=== PATIENT | female | born 1990 | race Caucasian/White ===

== ENCOUNTER 2018-02-22 03:18 | Inpatient (IN) | payer BC ==
[2018-02-22] MEDS ORDERED: ELECTROLYTE-148 SOLN 500 ML IV ONE ×3 (03:30→06:20)
[2018-02-22] MEDS: ELECTROLYTE-148 SOLN 1,000 ML IV SCH (06:00)
[2018-02-22 06:16] LABS: URINE APPEARANCE CLEAR; URINE BILIRUBIN NEGATIVE (<2.0 mg/dL); URINE COLOR STRAW; URINE GLUCOSE (UA) NEGATIVE (NEGATIVE); URINE KETONE NEGATIVE (NEGATIVE); URINE LEUK ESTERASE NEGATIVE (NEGATIVE); URINE NITRITE NEGATIVE (NEGATIVE); URINE PROTEIN NEGATIVE (NEGATIVE); URINE UROBILINOGEN NEGATIVE mg/dL (0.2-1.0)
[2018-02-22] MEDS ORDERED: CITRIC ACID/SODIUM CITRATE 30 ML UNIT-DOSE CUP PO ONE (06:20)
[2018-02-22 06:45] VITALS: BMI 40.5
--- NOTE | 2018-02-22 07:36 | HP ---
Past Medical History - Admission History of Present Illness: 28 yo @ 39 0/7 wks by first trimester ultrasound, EDC 03/01/2018 complicated by: 1. Prior CD in 2010 for failure to progress, desiring repeat CD 2. Obesity - BMI 30, normal early and 23 wk GCT 56 lb wt gain EFW at 35 + wks (02/01/2018) - 2688g (5 lb 15 oz) 40% Patient reports contractions which began overnight, increased in intensity and frequency at approximately 2300. She reports movement, denies leakage of fluid or vaginal bleeding. History Source: Patient Limitations to Obtaining History: No Limitations - Past Medical History Cardiovascular: No: HTN Pulmonary: No: Asthma Gastrointestinal: No: GERD ...: 2 ...Para: 1 ...Term: 1 ...: 0 ...Spon : 0 ...Induced : 0 ...Multiple Gestation: 0 ...LMP: 05/25/17 ... Weeks Gestation by Dates: 39.0 ...EDC by Dates: 03/01/18 ...EDC by Sono: 03/01/18 Psych: Yes: Anxiety - Past Surgical History Past Surgical History: Yes: Cholecystectomy, Hx Myomectomy: No Hx Transabdominal Cerclage: No - Smoking History Smoking history: Never smoked Have you smoked in the past 12 months: No Aproximately how many cigarettes per day: 4 If you are a former smoker, when did you quit?: 1 wk - Alcohol/Substance Use Hx Alcohol Use: No - Social History History of Recent Travel: No Home Medications - Allergies Allergies/Adverse Reactions: Allergies Allergy/AdvReac Type Severity Reaction Status Date / Time No Known Allergies Allergy Verified 10/12/15 13:55 - Home Medications Home Medications: Ambulatory Orders NK [No Known Home Medication] 10/05/15 Family Disease History - Family Disease History Family History: Denies Review of Systems - Review of Systems Constitutional: reports: No Symptoms Cardiovascular: reports: No Symptoms Respiratory: reports: No Symptoms Gastrointestinal: reports: No Symptoms Genitourinary: reports: No Symptoms Musculoskeletal: reports: No Symptoms Neurological: reports: No Symptoms Physical Exam - Maternity Vital Signs: Vital Signs Temperature 99.0 F 02/22/18 06:30 Pulse Rate 85 02/22/18 06:30 Respiratory Rate 20 02/22/18 06:30 Blood Pressure 116/64 02/22/18 06:30 O2 Sat by Pulse Oximetry (%) Constitutional: Yes: Well Nourished, No Distress, Calm Cardiovascular: Yes: Regular Rate and Rhythm Lungs: Clear to auscultation - Abdominal Exam/OB Number of Fetuses: Single Presentation: Vertex Category: I Accelerations: Non-Uniform Decelerations: None - Vaginal Exam/OB Presentation: Vertex/Position - Physical Exam Edema: LLE: 1+, RLE: 1+ ...Motor Strength: WNL Psychiatric: Yes: Alert, Oriented - Labs Lab Results: PNL: B positive, antibody negative, RPR NR; HIV neg; HCV neg; HBsAg neg; Hg Daisy AA; Parvo IgG pos; Toxo IgG/IgM imm; GBS negative; Sequential 1&2 WNL Hemorrhage Risk Assessment - Risk Factors Medium Risk Factors: Yes: Prior , uterine surgery,or multiple laparotomies High Risk Factors: Yes: None Risk Score: 1 Risk Level: Medium Risk Assessment/Plan 28 yo @ 39 0/7 wks, labor, prior CD for repeat 1. Admit to L&D 2. Consents reviewed and signed. Reviewed risks including but not limited to infection, bleeding, damage to surrounding organs such as bowel, bladder and ureters, injury to infant. She expressed understanding. 3. 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 Jass proceed to OR
[2018-02-22] MEDS ORDERED: morphine SULFATE/Preservative Free 0.5 MG/ML (1cc Syringe) ONE (07:46)
[2018-02-22] MEDS ORDERED: PHENYLEPHRINE HCL 10 MG/1 ML SINGLE DOSE VIAL ONE (07:48)
[2018-02-22] MEDS ORDERED: ceFAZolin SODIUM 1 GM VIAL ONE (07:51)
[2018-02-22] MEDS ORDERED: OXYTOCIN 20 UNITS in 0.9% NS 40 UNIT/2,000 ML INFUS.BAG IV ONE (08:35)
[2018-02-22] MEDS ORDERED: MIDAZOLAM HCL 2 MG/2 ML SINGLE DOSE VIAL ONE (08:45)
[2018-02-22] MEDS ORDERED: DEXAMETHASONE SOD PHOSPHATE 4 MG/1 ML VIAL ONE (08:46)
[2018-02-22] MEDS: OXYTOCIN 20 UNITS in 0.9% NS 20 UNIT/1,000 ML INFUS.BAG IV SCH ×2 (09:30→14:00)
[2018-02-22] MEDS ORDERED: WITCH HAZEL 50% (TUCKS) 40 PAD/JAR PAD TP PRN (09:30)
[2018-02-22] MEDS ORDERED: BENZOCAINE 20% 57 GM BOTTLE TP PRN (09:30)
[2018-02-22] MEDS ORDERED: BENZOCAINE 28 GM HEMORRHOIDAL OINTMENT TP PRN (09:30)
[2018-02-22] MEDS ORDERED: METHYLERGONOVINE MALEATE 0.2 MG/1 ML AMP IM PRN (09:30)
[2018-02-22] MEDS ORDERED: IBUPROFEN 800 MG/8 ML IJ IVPB PRN (09:30)
--- NOTE | 2018-02-22 09:42 | PN ---
Delivery - Delivery Section: Repeat EBL (cc): 600 Delivery, Single - Stages of Labor Placenta: Yes: Expressed - Condition of Learning Support Resource Room Teacher/Social Organization Professor Present: Yes Gender: Female Position: Right, OT Total Hours ROM (Hrs/Mins): 7lb 1 oz; 18.5 inches - 1 Minute Total Score: 9 5 Minutes Total Score: 9 - Robards Feeding Plan Initial Plan: Elected not to breastfeed exclusively throughout hospitalization Remarks - Remarks Remarks: Surgeon - Vitor; Assist - Ezra; Anesthesia - Tania / Baljit EBL - 600; IVF - 2000; UOP - 100 Findings: Female , ROT position, 9,9 wt 7lb 1 oz; 18.5 inches; normal tubes and ovaries bilaterally, dense adhesions from omentum to uterus Dictation: [id number]
[2018-02-22 09:45] LABS: ARTERIAL BLOOD GAS PCO2 76.5 mmHg (35-45); ARTERIAL BLOOD GAS PO2 18.3 mmHg (80-100); ARTERIAL BLOOD GAS pH 7.04 (7.35-7.45)
[2018-02-22 09:46] LABS: ARTERIAL BLD GAS O2 SATURATION 15.4 % (90-98.9); ARTERIAL BLOOD GAS BASE EXCESS -13.5 meq/l (-2-2); VENOUS PC02 73.4 mmHg (38-52); VENOUS PH 7.07 (7.32-7.42)
[2018-02-22] MEDS: PRENATAL VITAMINS W/ FOLIC ACID TABLET (FP) PO SCH (10:05)
[2018-02-22] MEDS ORDERED: TUBERCULIN PPD 5 TU/0.1ML SYRINGE (IN PATIENT USE ONLY) ID ONE ×3 (11:02→14:30)
--- NOTE | 2018-02-22 13:38 | OP ---
DATE OF OPERATION: 02/22/2018 PREOPERATIVE DIAGNOSIS: Intrauterine at 39 weeks, prior section in labor. POSTOPERATIVE DIAGNOSIS: Intrauterine at 39 weeks, prior section in labor. SURGEON: Ruby Adler MD BOOK REVIEWER: Jorge Munguia MD. ANESTHESIA: Anny Marin MD and Mary Hogan MD ESTIMATED BLOOD LOSS: 600 mL. IV FLUIDS: 2 L. URINE OUTPUT: 100. FINDINGS: Female infant, ROP position. Apgars 9 and 9, weight 7 pounds 1 ounce, and 18-1/2 inches. Normal tubes and ovaries bilaterally with dense adhesions from uterus. INDICATIONS: The patient is a 28-year-old 2, para I prior section presenting with a chief complaint of painful contractions. She was counseled regarding a trial of labor versus repeat section and she desired repeat. She was consulted regarding the risks, benefit, alternatives and complications of the procedure including infection, bleeding, and damage to surrounding organs such as bowel, bladder, and injury to infant. She expressed understanding and was brought to the operating room. DESCRIPTION OF PROCEDURE: When anesthesia was found to be adequate, the patient was prepped and draped in the normal sterile fashion and placed in the dorsal supine position and a leftward tilt. An approximately 11-cm skin incision was made approximately 2 cm above the symphysis pubis and carried down to the underlying rectus fascia using Bovie electrocautery. The fascia was nicked in midline and extended laterally using the Andrade scissors. The inferior portion of the fascial incision was tented up using Gracia clamps and dissected off underling rectus muscles using the Andrade scissors. Attention was brought to the superior portion where in a similar fashion was tented up using Gracia clamps and dissected off the underlying rectus muscles using the Andrade scissors. The rectus muscle was in midline and the peritoneum was entered sharply. evaluation of the peritoneal cavity revealed dense adhesions from the uterus to the anterior abdominal wall and omentum to the uterus. The peritoneal incision was entered sharply inferior and superiorly using the Metzenbaum scissors. The adhesions from the uterus to the anterior abdominal wall were taken down sharply. Good hemostasis was noted. Omental adhesions were taken down suture ligated using 0 Vicryl and good hemostasis was noted. Attention was brought to the uterus. The bladder flap could not be created given the amount of adhesions. The hysterotomy was performed and it extended laterally using the bandage scissors. The infants head was brought to the hysterotomy site and was delivered followed by shoulders and body without difficulty. Cord blood and cord gas were collected and sent and the infant was handed to awaiting NICU staff. The placenta was manually extracted. The uterus was cleared of all clot and debris and closed using 0 Biosyn in an interrupted fashion with the second layer as an imbricating layer. Evaluation of the adnexa were found to be normal bilaterally. Good hemostasis was noted and copious irrigation was performed. The peritoneum was closed using 2-0 Biosyn in a running fashion and the fascia was closed using 0 Vicryl in a running fashion. The subcutaneous fat was closed using 0 Vicryl in running fashion and the skin was reapproximated using 3-0 Vicryl. The patient tolerated the procedure well. Estimated blood loss was 600 mL. The patient was brought to the recovery room in stable condition. Jessica [id number]
--- NOTE | 2018-02-23 06:21 | PN ---
Post Progress Note - Subjective Subjective: no complains, pain well controlled Post Day: 1 Type of Delivery: Repeat C/S Vital Signs: Vital Signs Temperature 99.0 F 02/23/18 04:28 Pulse Rate 82 02/23/18 04:28 Respiratory Rate 20 02/23/18 05:00 Blood Pressure 94/45 L 02/23/18 04:28 O2 Sat by Pulse Oximetry (%) 98 02/22/18 10:30 Breast Exam: Yes: Soft Uterus: Yes: Fundus Firm Incision: Yes: Dressing dry and intact Abdomen/GI: Yes: Abdomen soft Lochia: Yes: Rubra Lochia, amount: Moderate Extremities: Yes: Calves non-tender Perineum: Yes: Intact Activity: Other (in bed) Assessment/Plan 28yo P2 now s/p repeat c/section, prior c/section in labor VSS, Afebrile, pain controlled Labs pending Rh positive, no need for RhoGam prophylaxis Baby girl - doing well Encourage ambulation and regular voiding DVT prophylaxis cont. routine Postop care
[2018-02-23 08:14] LABS: BASO % 0.6 % (0-2.0); EOS % 0.2 % (0-4.5); HEMATOCRIT 25.9 % (32.4-45.2); HEMOGLOBIN 8.3 GM/dL (10.7-15.3); LYMPH % 18.5 % (8-40); MCH 25.8 pg (25.7-33.7); MCHC 32.2 g/dl (32.0-36.0); MEAN CELL VOLUME 80.2 fl (80-96); MEAN PLT VOLUME 8.2 fl (7.5-11.1); MONO % 7.4 % (3.8-10.2); NEUT % 73.3 % (42.8-82.8); PLATELET COUNT 246 K/MM3 (134-434); RBC 3.23 M/mm3 (3.60-5.2); RDW 15.3 % (11.6-15.6); WHITE BLOOD COUNT 14.1 K/mm3 (4.0-10.0)
--- NOTE | 2018-02-23 08:18 | PN ---
Progress Note (short form) - Note Progress Note: POD #1 - s/p repeat under spinal anesthesia with Duramorph. VSS. Pt. doing well, walking about without complaints. Good pain control. No apparent anesthetic complications noted. Continue current care.
[2018-02-23] MEDS ORDERED: BISACODYL 10 MG SUPP.RECT RC PRN (09:30)
[2018-02-23] MEDS: PRENATAL VITAMINS W/ FOLIC ACID TABLET (FP) PO SCH (10:05)
[2018-02-23] MEDS: ENOXAPARIN NA (PORCINE) 40 MG/0.4 ML DISP.SYRIN SQ SCH (10:07)
[2018-02-23] MEDS: ACETAMINOPHEN 325 MG TABLET (FP) PO PRN ×2 (10:33→21:39)
[2018-02-23] MEDS: IBUPROFEN 600 MG TABLET (FP) PO PRN ×3 (10:33→23:08)
[2018-02-23] MEDS: SIMETHICONE 80 MG TAB.CHEW (FP) PO PRN ×3 (10:34→23:09)
[2018-02-23] MEDS: oxyCODONE HCL 5 MG TABLET PO PRN ×3 (13:15→23:08)
[2018-02-24] MEDS: IBUPROFEN 600 MG TABLET (FP) PO PRN ×4 (05:56→20:15)
[2018-02-24] MEDS: oxyCODONE HCL 5 MG TABLET PO PRN ×4 (05:57→20:14)
[2018-02-24] MEDS: SIMETHICONE 80 MG TAB.CHEW (FP) PO PRN ×4 (05:58→20:13)
[2018-02-24] MEDS: PRENATAL VITAMINS W/ FOLIC ACID TABLET (FP) PO SCH (09:10)
[2018-02-24] MEDS: ENOXAPARIN NA (PORCINE) 40 MG/0.4 ML DISP.SYRIN SQ SCH (09:11)
--- NOTE | 2018-02-24 12:57 | PN ---
Post Progress Note - Subjective Subjective: Patient without acute complaints. Reports tolerating oral intake without nausea or vomiting. Ambulating without dizziness. Denies fevers or chills. Pain well controlled with oral pain medication. without difficulty. Passing flatus. Post Day: 2 Type of Delivery: Repeat C/S Vital Signs: Vital Signs Temperature 98.7 F 02/24/18 08:00 Pulse Rate 77 02/24/18 08:00 Respiratory Rate 20 02/24/18 08:00 Blood Pressure 97/57 L 02/24/18 08:00 O2 Sat by Pulse Oximetry (%) 98 02/22/18 10:30 Breast Exam: Yes: Soft Uterus: Yes: Fundus Firm, Fundus below umbilicus Incision: Yes: Sutures intact. No: Redness, Oozing Abdomen/GI: Yes: Abdomen soft, Tender (mild incisional), Passing flatus, Tolerating PO. No: Abdominal Distention Lochia: Yes: Serosa Lochia, amount: Small Extremities: Yes: Calves non-tender Perineum: Yes: Intact Activity: Ambulating - Labs Labs: CBC WBC 14.1 K/mm3 (4.0-10.0) H 02/23/18 07:10 RBC 3.23 M/mm3 (3.60-5.2) L 02/23/18 07:10 Hgb 8.3 GM/dL (10.7-15.3) L 02/23/18 07:10 Hct 25.9 % (32.4-45.2) L D 02/23/18 07:10 MCV 80.2 fl (80-96) 02/23/18 07:10 MCH 25.8 pg (25.7-33.7) 02/23/18 07:10 MCHC 32.2 g/dl (32.0-36.0) 02/23/18 07:10 RDW 15.3 % (11.6-15.6) 02/23/18 07:10 Plt Count 246 K/MM3 (134-434) D 02/23/18 07:10 MPV 8.2 fl (7.5-11.1) 02/23/18 07:10 Absolute Neuts (auto) 10.3 K/mm3 (1.5-8.0) H 02/23/18 07:10 Neutrophils % 73.3 % (42.8-82.8) 02/23/18 07:10 Lymphocytes % 18.5 % (8-40) 02/23/18 07:10 Monocytes % 7.4 % (3.8-10.2) 02/23/18 07:10 Eosinophils % 0.2 % (0-4.5) 02/23/18 07:10 Basophils % 0.6 % (0-2.0) 02/23/18 07:10 Nucleated RBC % 0 % (0-0) 02/23/18 07:10 Assessment/Plan 28 yo POD # 2 s/p repeat CD, afebrile, vital signs stable, mild asymptoamtic anemia, doing well 1. Continue routine postoperative care. 2. Encourage ambulation and incentive spirometer use 3. Continue oral pain medication 4. Anticipate discharge home postoperative day #4
[2018-02-24] MEDS: LACTATED RINGERS SOLUTION 1,000 ML IV SCH ×2 (21:24→22:03)
[2018-02-24] MEDS: OXYTOCIN 20 UNITS in 0.9% NS 20 UNIT/1,000 ML INFUS.BAG IV SCH ×2 (21:25→22:04)
[2018-02-24] MEDS: ELECTROLYTE-148 SOLN 1,000 ML IV SCH ×2 (21:25→22:04)
[2018-02-24] MEDS: ACETAMINOPHEN 325 MG TABLET (FP) PO PRN (22:02)
[2018-02-24] MEDS ORDERED: SENNOSIDES/DOCUSATE COMBO (SENNA PLUS) TABLET (UD) PO PRN (22:21)
[2018-02-25] MEDS: oxyCODONE HCL 5 MG TABLET PO PRN ×2 (02:45→08:09)
[2018-02-25] MEDS: IBUPROFEN 600 MG TABLET (FP) PO PRN ×5 (02:46→20:21)
[2018-02-25] MEDS: SIMETHICONE 80 MG TAB.CHEW (FP) PO PRN ×5 (02:46→20:20)
[2018-02-25 07:29] LABS: BASO % 0.2 % (0-2.0); EOS % 1.3 % (0-4.5); HEMATOCRIT 26.1 % (32.4-45.2); HEMOGLOBIN 8.4 GM/dL (10.7-15.3); LYMPH % 20.9 % (8-40); MCH 26.1 pg (25.7-33.7); MCHC 32.2 g/dl (32.0-36.0); MEAN PLT VOLUME 7.7 fl (7.5-11.1); NEUT % 71.6 % (42.8-82.8); PLATELET COUNT 297 K/MM3 (134-434); RBC 3.23 M/mm3 (3.60-5.2); RDW 15.7 % (11.6-15.6); WHITE BLOOD COUNT 9.5 K/mm3 (4.0-10.0)
--- NOTE | 2018-02-25 07:38 | PN ---
Post Progress Note - Subjective Subjective: Patient without acute complaints. Reports tolerating oral intake without nausea or vomiting. Ambulating without dizziness. Denies fevers or chills. Pain well controlled with oral pain medication. with supplementation. Passing flatus. Post Day: 3 Type of Delivery: Repeat C/S Vital Signs: Vital Signs Temperature 98.0 F 02/24/18 22:00 Pulse Rate 86 02/24/18 22:00 Respiratory Rate 19 02/24/18 22:00 Blood Pressure 127/74 02/24/18 22:00 O2 Sat by Pulse Oximetry (%) 98 02/22/18 10:30 Breast Exam: Yes: Soft Uterus: Yes: Fundus Firm, Fundus below umbilicus Incision: Yes: Sutures intact. No: Redness, Oozing Abdomen/GI: Yes: Abdomen soft, Tender (incisional). No: Abdominal Distention Lochia: Yes: Serosa Lochia, amount: Small Extremities: Yes: Calves non-tender, Edema (+1) Activity: Ambulating - Labs Labs: CBC WBC 14.1 K/mm3 (4.0-10.0) H 02/23/18 07:10 RBC 3.23 M/mm3 (3.60-5.2) L 02/23/18 07:10 Hgb 8.3 GM/dL (10.7-15.3) L 02/23/18 07:10 Hct 25.9 % (32.4-45.2) L D 02/23/18 07:10 MCV 80.2 fl (80-96) 02/23/18 07:10 MCH 25.8 pg (25.7-33.7) 02/23/18 07:10 MCHC 32.2 g/dl (32.0-36.0) 02/23/18 07:10 RDW 15.3 % (11.6-15.6) 02/23/18 07:10 Plt Count 246 K/MM3 (134-434) D 02/23/18 07:10 MPV 8.2 fl (7.5-11.1) 02/23/18 07:10 Absolute Neuts (auto) 10.3 K/mm3 (1.5-8.0) H 02/23/18 07:10 Neutrophils % 73.3 % (42.8-82.8) 02/23/18 07:10 Lymphocytes % 18.5 % (8-40) 02/23/18 07:10 Monocytes % 7.4 % (3.8-10.2) 02/23/18 07:10 Eosinophils % 0.2 % (0-4.5) 02/23/18 07:10 Basophils % 0.6 % (0-2.0) 02/23/18 07:10 Nucleated RBC % 0 % (0-0) 02/23/18 07:10 Assessment/Plan 28 yo POD # 3 s/p repeat CD, afebrile, vital signs stable, mild asymptoamtic anemia, doing well 1. Continue routine postoperative care. Repeat AM CBC pending. 2. Encourage ambulation and incentive spirometer use 3. Continue oral pain medication 4. Anticipate discharge home postoperative day #4
--- NOTE | 2018-02-25 07:39 | DS ---
Physical Exam-PIPE SMOKING MACHINE OFFBEARER Vital Signs: Vital Signs Temperature 98.0 F 02/24/18 22:00 Pulse Rate 86 02/24/18 22:00 Respiratory Rate 19 02/24/18 22:00 Blood Pressure 127/74 02/24/18 22:00 O2 Sat by Pulse Oximetry (%) 98 02/22/18 10:30 Delivery - Delivery Section: Repeat Type of Anesthesia: Spinal Episiotomy/Laceration: None EBL (cc): 600 Delivery, Single - Stages of Labor Date 1st Stage Initiatied: 02/22/18 Time 1st Stage Initiated: 02:30 Date of Delivery: 02/22/18 Time of Delivery: 08:42 Time Placenta Delivered: 08:43 Placenta: Yes: Expressed - Condition of Business Information Analyst/Welding Robot Operator Present: Yes Name: Karen Barillas Gender: Female Weight: 7 lb 1 oz Position: Right, OT Total Hours ROM (Hrs/Mins): 2mins - 1 Minute Total Score: 9 5 Minutes Total Score: 9 - Feeding Plan Initial Plan: Elected not to breastfeed exclusively throughout hospitalization Discharge Summary Reason For Visit: Procedures: Principal: Repeat Delivery Hospital Course: Patient admitted in labor, with prior CD Desiring repeat, declines offer for TOLAC She underwent an uncomplicated delivery POD # 1 patient ambulated, voiding, passing gas, tolerating oral intake and with adequate pain control. Noted to have mild asymptomatic anemia She fulfilled all criteria for discharge POD #4 - Instructions - Home Medications Comprehensive Discharge Medication List: Ambulatory Orders NK [No Known Home Medication] 10/05/15
[2018-02-25] MEDS: PRENATAL VITAMINS W/ FOLIC ACID TABLET (FP) PO SCH (09:39)
[2018-02-25] MEDS: ENOXAPARIN NA (PORCINE) 40 MG/0.4 ML DISP.SYRIN SQ SCH (09:39)
[2018-02-25] MEDS: ACETAMINOPHEN 325 MG TABLET (FP) PO PRN ×3 (12:14→20:20)
--- NOTE | 2018-02-25 16:38 | PATH ---
Surgical Pathology Report Patient Name: KARLA SAM Med. Rec. #: [id number] /Age/Gender: 1990 (Age: 28) / F Account: [id number] Location: [facility] OBS/FORECLOSURE HOME INSPECTOR Taken: 02/22/2018 Received: 02/23/2018 Reported: 02/25/2018 Physicians: Ruby Adler Specimen(s) Received PLACENTA Clinical History , 39.1 weeks Final Diagnosis PLACENTA, SECTION: 390 G THIRD TRIMESTER PLACENTA WITH TRIVASCULAR UMBILICAL CORD AND PLACENTAL MEMBRANES WITH MECONIUM-LADEN MACROPHAGES. Electronically Signed Giovanna Jackson M.D. Gross Description The specimen is received fresh labeled placenta and is a 390 gram, 15.0 x 13.0 x 2.9 cm. placenta with attached membranes and umbilical cord. The attached membranes are teixeira green, meconium stained, translucent with focal opacities and insert marginally. The umbilical cord measures 7.5 cm. in length and averages 1.1 cm. in diameter. The cord inserts eccentrically, 3 cm. to the nearest margin. No true knots or strictures are identified. Cut surface of the umbilical cord reveals 3 vessels. The surface is haynes green, meconium stained with minimal fibrin deposition and appropriate caliber vessels. The maternal surface is red-brown with focal defects. Sectioning reveals red-brown, spongy parenchyma. No lesions are identified. Software Requirements Engineer sections are submitted in three cassettes as follows: 1- membrane rolls and umbilical cord; 2-3- full thickness sections of placenta. 02/24/2018 [facility]02/24/2018
[2018-02-26] MEDS: SIMETHICONE 80 MG TAB.CHEW (FP) PO PRN ×2 (00:29→09:26)
[2018-02-26] MEDS: IBUPROFEN 600 MG TABLET (FP) PO PRN (00:30)
[2018-02-26] MEDS: ACETAMINOPHEN 325 MG TABLET (FP) PO PRN (00:30)
[2018-02-26] MEDS ORDERED: oxyCODONE HCL 5 MG TABLET PO PRN ×2 (03:24→03:43)
[2018-02-26] MEDS ORDERED: oxyCODONE HCL 5 MG TABLET ONE (03:45)
--- NOTE | 2018-02-26 04:39 | PN ---
Progress Note (short form) - Note Progress Note: pod 4 has mild cramps. passing gas ambulating CBC, BMP 02/25/18 06:00 Last Vital Signs Temp Pulse Resp BP Pulse Ox 98.3 F 75 20 101/69 98 02/25/18 20:54 02/25/18 20:54 02/25/18 20:54 02/25/18 20:54 02/22/18 10:30 abdomen soft, no distension, incision dry, clean no calf tenderness lochia mild plan d/c home, follow up office 1 week
[2018-02-26] MEDS: ENOXAPARIN NA (PORCINE) 40 MG/0.4 ML DISP.SYRIN SQ SCH (09:25)
[2018-02-26] MEDS: PRENATAL VITAMINS W/ FOLIC ACID TABLET (FP) PO SCH (09:26)
[2018-02-26 10:11] VITALS: BP 110/69; PULSE 77; TEMP 98.5
== END 2018-02-26 12:00 | disposition home or self-care (01) | DRG 787 ==
LOC: JDEL 03:18 → JLDR 06:20 → J3W 11:22
PROVIDERS: ADMIT Obstetrics & Gynecology; ATTEND Obstetrics & Gynecology
PROC: 10D00Z1 Extraction of Products of Conception, Low, Open Approach (ICD-10-PCS; principal; 2018-02-22)
DX: O34.211 Maternal care for low transverse scar from previous cesarean delivery (principal); O36.0930 Maternal care for other rhesus isoimmunization, third trimester, not applicable or unspecified; N73.6 Female pelvic peritoneal adhesions (postinfective); O99.013 Anemia complicating pregnancy, third trimester; D64.9 Anemia, unspecified; O26.893 Other specified pregnancy related conditions, third trimester; Z3A.39 39 weeks gestation of pregnancy; Z37.0 Single live birth
CPT/HCPCS: 36415; 36600; 81003; 82803; 85025; 86850; 86900; 86901; 88307-TC